=== PATIENT | male | born 1985 | race Caucasian/White ===

== ENCOUNTER → 2017-03-26 | Outpatient (CLI) | payer SELFPAY ==
--- NOTE | 2017-03-26 19:50 | US ---
EXAMINATION TYPE: US thyroid st tissue head/neck DATE OF EXAM: 03/26/2017 COMPARISON: NONE CLINICAL HISTORY: R22.1 Mass of Neck. Patient felt palpable lump on right side of neck today. GLAND SIZE: Right Lobe: 6.5 x 2.5 x 3.7 cm Overall Parenchyma: heterogenous Left Lobe: 5.9 x 2.1 x 2.2 cm Overall Parenchyma: heterogeneous Isthmus Thickness: 0.3 cm NODULES RIGHT: # of nodules measured on right: 1 1. 4.4 x 2.2 x 3.3 cm echogenic solid appearing nodule at the mid pole with well-defined margins. This nodule is wider than tall and shows intranodular vascularity. Prior size: No previous LEFT: # of nodules measured on left: 1 1. 2.0 X 1.1 x 1.5 cm echogenic solid appearing nodule at the mid pole with well-defined margins. This nodule is wider than tall and shows intranodular vascularity. Prior size: No previous ISTHMUS: # of nodules measured in the isthmus: 0 Bilateral neck scanned, no evidence of lymphadenopathy. The thyroid gland is enlarged. There is a hyperechoic solid mass that measures 4.4 x 3.3 x 2.2 cm in the right thyroid lobe. There is a similar-appearing smaller hyperechoic mass that measures 2 x 1.1 c m in the left thyroid lobe. These have increased vascularity compared to the remainder of the thyroid gland. 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 Follow-up is recommended. IMPRESSION:
== END ==
LOC: RADUSWWP 18:51
PROVIDERS: ATTEND Family Medicine
DX: R22.1 Localized swelling, mass and lump, neck (principal)
CPT/HCPCS: 76536

== ENCOUNTER 2017-04-12 11:26 | Day surgery (SDC) | payer OTHER ==
[2017-04-12] MEDS ORDERED: ALPRAZolam 0.5 MG TAB PO STA (11:54)
[2017-04-12 11:58] VITALS: TEMP 98.2
--- NOTE | 2017-04-12 13:55 | US ---
ULTRASOUND GUIDED FNA THYROID BIOPSY: CLINICAL HISTORY: Request for a single right and single left thyroid nodule FINDINGS: The procedure was explained to the patient. The risks, complications, benefits and alternatives were discussed and any questions were answered. Informed consent was obtained. Patient was placed supin e on the ultrasound table and prepped and draped in the usual sterile fashion. Utilizing a 25 gauge needle, five passes were made into the 2 requested thyroid nodule. Patient was stable throughout the procedure. Pathology is pending. All elements of maximal barrier technique were utilized. IMPRESSION: 1. Successful ultrasound guided FNA thyroid biopsy.
[2017-04-12 14:08] VITALS: BP 126/71; PULSE 72; RESP 16
== END 2017-04-12 13:30 | disposition home or self-care (01) ==
LOC: RADPROMAIN 11:26
PROVIDERS: ATTEND Surgery
DX: E04.1 Nontoxic single thyroid nodule (principal)
CPT/HCPCS: 10022; 76942; 88173; 88305